=== PATIENT | female | born 1975 | race Two or more races ===

== ENCOUNTER 2018-01-04 15:09 | Outpatient (CLI) | payer SELFPAY, OTHER | END 2018-01-04 18:40 | disposition home or self-care (01) | LOC: OBT 15:09 → L-D 15:10 → OBT 18:40 | DX: O36.8120 Decreased fetal movements, second trimester, not applicable or unspecified (principal); O09.522 Supervision of elderly multigravida, second trimester; Z3A.20 20 weeks gestation of pregnancy | CPT/HCPCS: 76815; 76817 ==